=== PATIENT | female | born 1945 | race Two or more races ===

== ENCOUNTER 2024-12-23 12:30 | Inpatient (IN) | payer OTHER ==
[2024-12-23] MEDS ORDERED: HORIZANT300 MG (13:05)
[2024-12-23] MEDS ORDERED: ALTACE2.5 MG PO (13:05)
[2024-12-23] MEDS ORDERED: CELEBREX50 MG (13:06)
[2024-12-23] MEDS ORDERED: BACLOFEN20 MG (13:06)
[2024-12-23] MEDS ORDERED: LEVOTHYROXINE25 MCG PO (13:07)
[2024-12-23] MEDS ORDERED: NORFLEX (13:09)
[2024-12-27] MEDS ORDERED: BUPIVACAINE HCL 30 ML VIAL IJ ONE (10:45)
[2024-12-27] MEDS ORDERED: levoFLOXacin IN DEXTROSE 5 % 500MG/100ML PIGGYBAG IV SCH (10:45)
[2024-12-27] MEDS ORDERED: LIDOCAINE HCL 1%/EPINEPHRINE 20ML VIAL IJ ONE (10:45)
[2024-12-27] MEDS ORDERED: FAMOTIDINE/PF 20 MG/2 ML VIAL IV PUSH SCH (11:12)
[2024-12-27] MEDS ORDERED: CIPROFLOXACIN IN 5 % DEXTROSE 400 MG/200 ML PIGGYBAG IV SCH (11:13)
[2024-12-27] MEDS ORDERED: TAMSULOSIN HCL 0.4 MG CAP PO SCH (11:13)
[2024-12-27] MEDS ORDERED: LACTOBACILLUS ACIDOPHILUS 1 CAP CAP PO SCH (11:13)
[2024-12-27] MEDS ORDERED: MORPHINE SULFATE 4 MG/ML CARTRIDGE IV PRN (11:15)
[2024-12-27] MEDS ORDERED: OxyCODONE HCL 5 MG TABLET (ROXICODONE) PO PRN (11:15)
[2024-12-27] MEDS ORDERED: RINGERS SOLUTION,LACTATED 1,000 ML IV SCH (11:15)
[2024-12-27] MEDS ORDERED: ONDANSETRON HCL 2 MG/ML VIAL IV PRN (11:15)
[2024-12-27] MEDS ORDERED: ACETAMINOPHEN 500 MG GEL..CAP PO SCH (12:00)
[2024-12-27] MEDS ORDERED: MORPHINE SULFATE 4 MG/ML VIAL IV ONE ×2 (12:20→15:00)
[2024-12-27] MEDS ORDERED: ENALAPRILAT DIHYDRATE 1.25 MG/ML VIAL IV PRN (12:45)
[2024-12-27] MEDS ORDERED: HYOSCYAMINE SULFATE 0.125 MG TAB.SUBL SL SCH (13:00)
[2024-12-27] MEDS ORDERED: GABAPENTIN 300 MG CAPSULE PO SCH (17:00)
[2024-12-27] MEDS ORDERED: METRONIDAZOLE/SODIUM CHLORIDE 500 MG/100 ML PIGGYBACK IV SCH (17:00)
[2024-12-28 01:01] VITALS: BP 120/76; O2SAT 98
[2024-12-28] MEDS ORDERED: SYNTHROID 25 MCG (MARCA ORIGINAL) PO SCH (06:00)
[2024-12-28 08:00] LABS: BUN CREA RATIO 9.0 (7.0-25.0); CREATININE SERUM 0.45 mg/dL (0.55-1.02); GFR 134.41; GLUCOSE FASTING 107.0 mg/dL (65-100); OSMOLALITY SERUM 280.0 MOSM/KG (275-295)
[2024-12-28 08:23] LABS: BASO % 0.2 % (0.1-1.2); EOS # 0.01 (0.04-0.54); EOS % 0.1 % (0.7-7.0); LYMPH # 1.30 (1.18-3.74); LYMPH % 15.1 % (19.3-53.1); MEAN PLATELET VOLUME 12.60 fl (9.4-12.4); MONO # 0.52 (0.24-0.82); MONO % 6.0 % (4.7-12.5); NEUT # 6.74 (1.56-6.13); NEUT % 78.4 % (34.0-71.1); RED CELL DISTRIBUTION WIDTH 15.0 % (11.6-14.4)
[2024-12-28 08:34] VITALS: BP 112/65; O2SAT 97
[2024-12-28] MEDS ORDERED: RAMIPRIL 2.5 MG CAPSULE PO SCH (09:00)
[2024-12-28] MEDS ORDERED: MAGNESIUM SULFATE IN WATER 4 GM/100 ML PIGGYBACK IV NR (12:00)
[2024-12-28 16:13] VITALS: BP 115/73; O2SAT 99
[2024-12-28] MEDS ORDERED: SOD FERRIC GLUC COMPLX/SUCROSE 62.5 MG in 0.9 % SODIUM CHLORIDE 50 ML IV SCH (17:00)
[2024-12-28] MEDS ORDERED: ENOXAPARIN SODIUM 40 MG/0.4 ML SYRINGE SUBCUTANEO SCH (17:00)
[2024-12-28] MEDS ORDERED: LORazepam 2 MG/ML VIAL IV STA (23:24)
[2024-12-29 00:30] VITALS: BP 103/83; O2SAT 95
[2024-12-29 07:36] LABS: BASO % 0.4 % (0.1-1.2); EOS # 0.02 (0.04-0.54); EOS % 0.2 % (0.7-7.0); LYMPH # 1.20 (1.18-3.74); LYMPH % 14.0 % (19.3-53.1); MEAN PLATELET VOLUME 13.00 fl (9.4-12.4); MONO # 0.64 (0.24-0.82); MONO % 7.5 % (4.7-12.5); NEUT # 6.62 (1.56-6.13); NEUT % 77.4 % (34.0-71.1); RED CELL DISTRIBUTION WIDTH 14.6 % (11.6-14.4)
[2024-12-29 07:44] LABS: BUN CREA RATIO 12.0 (7.0-25.0); CREATININE SERUM 0.5 mg/dL (0.55-1.02); GFR 119.02; GLUCOSE FASTING 98.0 mg/dL (65-100); OSMOLALITY SERUM 279.0 MOSM/KG (275-295)
[2024-12-29 08:37] VITALS: BP 115/67; O2SAT 98
[2024-12-29] MEDS ORDERED: ENOXAPARIN SODIUM 40 MG/0.4 ML SYRINGE SUBCUTANEO SCH (09:00)
[2024-12-29] MEDS ORDERED: POTASSIUM PHOS,M-BASIC-D-BASIC 3 MM/ML VIAL IV ONE (11:00)
[2024-12-29 16:09] VITALS: BP 138/71; O2SAT 99
[2024-12-30 00:49] VITALS: BP 123/69; O2SAT 99
[2024-12-30 07:31] LABS: BASO % 0.5 % (0.1-1.2); EOS # 0.09 (0.04-0.54); EOS % 1.2 % (0.7-7.0); LYMPH # 1.75 (1.18-3.74); LYMPH % 23.7 % (19.3-53.1); MEAN PLATELET VOLUME 12.60 fl (9.4-12.4); MONO # 0.60 (0.24-0.82); MONO % 8.1 % (4.7-12.5); NEUT # 4.86 (1.56-6.13); NEUT % 66.1 % (34.0-71.1); RED CELL DISTRIBUTION WIDTH 14.9 % (11.6-14.4)
[2024-12-30 08:00] VITALS: BP 131/79; O2SAT 99
[2024-12-30 08:11] LABS: BUN CREA RATIO 9.0 (7.0-25.0); CREATININE SERUM 0.44 mg/dL (0.55-1.02); GFR 137.94; GLUCOSE FASTING 114.0 mg/dL (65-100); OSMOLALITY SERUM 283.0 MOSM/KG (275-295)
[2024-12-30] MEDS ORDERED: INTESTINEX680 M1 PO (17:27)
== END 2024-12-30 19:06 | disposition home or self-care (01) | DRG 331 ==
LOC: SURG 12-27 07:00 → SURH 12-27 10:13 → O/R 12-27 10:13 → SURG 12-27 12:30 → SURH 12-27 12:55
PROVIDERS: Internal Medicine Geriatric Medicine; ADMIT Surgery; ATTEND Surgery
PROC: 07BC4ZZ Excision of Pelvis Lymphatic, Percutaneous Endoscopic Approach (ICD-10-PCS; 2024-12-27)
PROC: 0DBF4ZZ Excision of Right Large Intestine, Percutaneous Endoscopic Approach (ICD-10-PCS; principal; 2024-12-27 07:00)
DX: C18.0 Malignant neoplasm of cecum (principal); I11.9 Hypertensive heart disease without heart failure